=== PATIENT | female | born 1960 | race Caucasian/White ===

== ENCOUNTER 2016-08-11 09:37 | Inpatient (IN) ==
--- NOTE | 2016-08-11 11:33 | Cardiology History & Physical ---
Date of Encounter: 08/11/16 Time of Encounter: 12:00 Assessment and Plan (1) Atrial fibrillation Current Visit: Yes Status: Chronic Presents today for symptomatic atrial fibrillation--per Dr. Joseph Quijano, will start Rythmol therapy. Last saw Dr. Joseph Quijano on 06/20/16 who recommended antiarrhythmic therapy for symptomatic afib--dizziness, fatigue, dyspnea. [facility] 2010: no significant CAD TTE February 2016: LVEF preserved, mild-moderately dilated left atrium, no significant valvular dysfunction. On Toprol XL 12.5 mg daily and Cardizem 120 mg daily, will continue for now, may need dose adjustment--monitor ECG's, telemetry closely. Has been anticoagulated on Xarelto 20 mg daily, reports compliance (no missed doses) with medication >30 days. Obtain baseline ECG, BMP, CBC, and Mag. Baseline ECG 08/11/16: HR 90 Afib QRS: 85 ms QT/QTc: 357/407 ms Will initiate Rythmol 120mg [id number] with daily EKGs for QRS monitoring <120ms. Will need inpatient monitoring for at least 5-6 doses. If remains in Afib by 6th dose, plan for DCCV--patient is agreeable. Discussed and reviewed with Dr. Goss who agrees with plan as stated above. Qualifiers: Atrial fibrillation type: persistent Qualified Code(s): I48.1 - Persistent atrial fibrillation (2) Encounter for monitoring anti-arrhythmic therapy Current Visit: Yes Status: Acute Plan as stated above. The assessment and plan as outlined above was discussed with the patient and/or family members who expressed understanding and agreement. All questions were answered. (3) Essential hypertension Current Visit: Yes Status: Chronic Controlled, adjust as necessary. History of Present Illness Chief complaint: Atrial fibrillation HPI: Ms. Madrid is a 56 year old female with PMH significant for persistent atrial fibrillation (Xarelto), CARMELO (CPAP compliant), HTN, and HLD. She has been having shortness of breath and dizziness related to atrial fibrillation. After discussion with Dr. Joseph Quijano she opted for admission for initiation of antiarrhythmics for rhythm control. She presents today to start Rythmol. Recent CV testing: [facility] 01/2011: Coronary arteries are normal TTE 03/14/16: EF 60-65%, mild to moderately dilated left atrium, no significant valvular dysfunction. 07/04/16: Atrial fibrillation throughout the monitor, average heart rate 83, occasional pauses, longest 2.2 seconds. Pauses occurred during nocturnal hours, rare PVCs or aberrant beats Past Med Surg Social Fam HX - Past Medical History Medical history: atrial fibrillation, DVT, hypertension, other (Obstructive sleep apnea) Psychiatric history: anxiety (Situational anxiety related to iminate of her spouse) - Past Surgical History Surgical History: hysterectomy - Social History Smoking Status: Never smoker Smokeless Tobacco Status: No Alcohol use: none Drug use: none - Family History Mother Living Status: Father Living Status: Hx Family Respiratory Disorders: Yes (COPD) Sister Living Status: Hx Family Cancer: Yes (lung) Brother Living Status: Hx Family Cancer: Yes (colon) Medications and Allergies Atorvastatin [Lipitor] 40 mg PO HS 03/13/16 [History] Metoprolol XL (24 HR) Succ [Toprol Xl] 12.5 mg PO DAILY 03/13/16 [History] Diltiazem CD (24hr) [Cardizem CD] 120 mg PO DAILY #30 cap.er.24h 03/15/16 [Rx] Rivaroxaban [Xarelto] 20 mg PO 2100 08/11/16 [History] Allergies ibuprofen [From Motrin] Allergy (Verified 02/05/15 08:28) Hives sulfamethoxazole [From Bactrim] Allergy (Verified 02/05/15 08:28) Rash trimethoprim [From Bactrim] Allergy (Verified 02/05/15 08:28) Rash All Systems Review: A 10-system review of systems was performed and is negative for pertinent findings except as documented above in the HPI. - Cardiovascular Cardiovascular: as per HPI Physical Examination General: Conversant, No Apparent Distress HEENT: Atraumatic, Normocephaly, Mucus Membranes Moist Cardiac: Other (irregularly irregular) Neuro: Alert and responsive Abdomen: Soft Skin: No rashes noted on visualized skin Musculoskeletal: No Chest Wall Tenderness Extremities: No Edema, Normal Pulses Results 08/11/16 12:01 08/11/16 12:01 - Imaging and Cardiology Echo: report reviewed Cardiac cath: report reviewed - EKG Interpretation EKG results cardiology: personally reviewed
[2016-08-11 12:11] LABS: Basophils % 0.6 %; Eosinophils % 0.6 %; Hematocrit 42.7 % (35.3-44.9); Hemoglobin 14.3 g/dL (11.5-15.4); Immature Granulocytes % 0.3 % (0-4); Lymphocytes % 29.5 %; Mean Corpuscular HGB Conc 33.5 g/dL (31.6-35.5); Mean Corpuscular Hemoglobin 28.4 pg (28.0-33.3); Mean Corpuscular Volume 84.7 fL (83.0-100.0); Mean Platelet Volume 9.5 fL (9.4-12.4); Monocytes # 0.4 K/mcL (0.0-1.3); Monocytes % 5.8 %; Neutrophils # 4.3 K/mcL (1.6-8.9); Platelet Count 229 K/mcL (140-400); Red Blood Count 5.04 M/mcL (3.82-4.97); Segmented Neutrophils % 63.2 %
[2016-08-11 12:24] LABS: BUN/Creatinine Ratio 15 (6-26); Blood Urea Nitrogen 11 mg/dL (7-20); Calcium 9.5 mg/dL (8.6-10.8); Carbon Dioxide 24 mEq/L (19-29); Chloride 109 mEq/L (98-109); Glucose 91 mg/dL (70-99); Magnesium 2.2 mg/dL (1.6-2.6); Osmolality,Calculated 289 (280-300); Potassium 4.1 mEq/L (3.5-4.5); Sodium 140 mEq/L (136-145); eGFR For African Americans > 60 (> 60); eGFR For Non-African Americans > 60 (> 60)
[2016-08-11] MEDS ORDERED: Naloxone 0.4 MG/ML INJ IVP PRN (13:01)
[2016-08-11] MEDS: Diltiazem CD (24hr) 120 MG CAPSULE PO SCH (14:10)
[2016-08-11] MEDS: *HR* Rivaroxaban 10 MG TABLET PO SCH (21:04)
--- NOTE | 2016-08-12 07:03 | Electrocardiograph Report ---
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
[2016-08-12] MEDS: Metoprolol XL (24 HR) Succ 25 MG TAB.ER.24H PO SCH (08:09)
[2016-08-12] MEDS: Diltiazem CD (24hr) 120 MG CAPSULE PO SCH (08:09)
--- NOTE | 2016-08-12 10:54 | Cardiology Progress Note ---
Date of Encounter: 08/12/16 Time of Encounter: 10:40 Assessment and Plan (1) Atrial fibrillation Current Visit: Yes Status: Chronic Presents today for symptomatic atrial fibrillation--per Dr. Joseph Quijano, will start Rythmol therapy. Last saw Dr. Joseph Quijano on 06/20/16 who recommended antiarrhythmic therapy for symptomatic afib--dizziness, fatigue, dyspnea. [facility] 2010: no significant CAD TTE February 2016: LVEF preserved, mild-moderately dilated left atrium, no significant valvular dysfunction. On Toprol XL 12.5 mg daily and Cardizem 120 mg daily, will continue for now, may need dose adjustment--monitor ECG's, telemetry closely. Has been anticoagulated on Xarelto 20 mg daily, reports compliance (no missed doses) with medication >30 days. Baseline ECG 08/11/16: HR 90 Afib QRS: 85 ms QT/QTc: 357/407 ms After 3 doses: 08/12/16: HR 69 Afib QRS: 87 ms QT/QTc: 409/428 ms Will initiate Rythmol 120mg [id number] with daily EKGs for QRS monitoring <120ms. Will need inpatient monitoring for at least 5-6 doses. 5th dose schedule for tonight at 2200, will plan for DCCV in AM if remains Afib. NPO after MN. Qualifiers: Atrial fibrillation type: persistent Qualified Code(s): I48.1 - Persistent atrial fibrillation (2) Encounter for monitoring anti-arrhythmic therapy Current Visit: Yes Status: Acute Plan as stated above. The assessment and plan as outlined above was discussed with the patient and/or family members who expressed understanding and agreement. All questions were answered. (3) Essential hypertension Current Visit: Yes Status: Chronic Controlled, adjust as necessary. Discussion w patient/family: The assessment and plan as outlined above was discussed with the patient and/or family members who expressed understanding and agreement. All questions were answered. Thank you for involving us in the care of your patient. Please call with any questions. The patient will be discussed and reviewed with Dr. Goss; changes to be made accordingly. Subjective Principal diagnosis: Atrial fibrillation Interval history: Seen and examined. No complaints other than mild headache this morning. Objective Vital Signs, Last 4 Hours Temp Pulse Resp BP Pulse Ox 08/12/16 08:10 76 08/12/16 07:22 98.2 F 97 16 140/92 97 General: Conversant, No Apparent Distress HEENT: Atraumatic, Normocephaly Cardiac: Other (irregularly irregular) Lungs: Normal Breath Sounds Neuro: Alert and responsive Abdomen: Soft Skin: No rashes noted on visualized skin Musculoskeletal: No Chest Wall Tenderness Extremities: No Edema, Normal Pulses Results 08/11/16 12:01 08/11/16 12:01 Lab Results 08/11/16 08/11/16 12:01 12:01 WBC 6.9 Hgb 14.3 Hct 42.7 Plt Count 229 Sodium 140 Potassium 4.1 Chloride 109 Carbon Dioxide 24 BUN 11 Creatinine 0.72 Glucose 91 Calcium 9.5 Magnesium 2.2 - Imaging and Cardiology Echo: report reviewed Cardiac cath: report reviewed Other Results: 12 hour tele: avg HR=73 afib. - EKG Interpretation EKG results cardiology: personally reviewed - VTE Reasons for not Prescribing Prophylaxis: Not indicated-Anticoagulated or INR therapeutic Consult Discharge Plan - Plan Referrals: Teja White MD [Primary Care Provider] - 08/18/16 3:00 pm
--- NOTE | 2016-08-12 16:47 | Electrocardiograph Report ---
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
[2016-08-12] MEDS: *HR* Rivaroxaban 10 MG TABLET PO SCH (22:00)
[2016-08-13] MEDS: Diltiazem CD (24hr) 120 MG CAPSULE PO SCH (08:40)
[2016-08-13] MEDS: Metoprolol XL (24 HR) Succ 25 MG TAB.ER.24H PO SCH (08:40)
[2016-08-13] MEDS ORDERED: 0.9 % Sodium Chloride 500 ML IVC ONE (10:12)
[2016-08-13] MEDS: *HR* FentaNYL (PF) 100 MCG/2 ML VIAL IVP PRN ×2 (10:45→10:49)
[2016-08-13] MEDS: *HR* Midazolam HCl 5 MG/5 ML VIAL IVP PRN ×2 (10:45→10:49)
[2016-08-13 11:56] VITALS: BP 121/80
--- NOTE | 2016-08-13 12:19 | ECHO - Doppler Report ---
Cardioversion Name: Beba Madrid Date of Study: 08/13/2016 Date: 1960 Ht: 65.0in Medical Record#: [id number] Age: 56 Wt: 213.0lb Gender: Female BSA: 2.03 Order #: [id number] Location: [facility] Room #: 2N08 Reading Physician: Maciej Lord DO, FACC Patternmaker Sample: Ordering Physician: Dang Nguyen CNP Primary Physician: Teja White MD Indications: Arrhythmia Impressions: Successful synchronized cardioversion with 300 Joules. See details below. Medication Given: Time Medication Dose Units Route 10:45 Versed 2 mg IV 10:45 Fentanyl 25 mcg IV 10:49 Versed 2 mg IV 10:49 Fentanyl 25 mcg IV Findings: Cardioversion * First attempt: 200 Joules, unsuccessful. * Second attempt: 300 Joules, successful. * No neurological deficits after the procedure. Procedure Details: Following informed consent, the patient was sedated with versed and fentanyl. After adequate sedation was achieved, synchronized cardioversion in the AP approach was performed. Initially, 200 Joules was unsuccessful. Second attempt with 300 Joules was successful at restoring normal sinus rhythm. The patient was monitored for the standard 30 minutes post procedure. Complications: None History: Hypertension Hypercholesteremia Previous Echo03/14/2016 BP 126 / 84 Updated by Maciej Lord DO, FACC, FASE, FASNC on 08/13/2016 12:13:41 PM
--- NOTE | 2016-08-13 12:29 | Electrocardiograph Report ---
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
--- NOTE | 2016-08-13 12:46 | Discharge Summary ---
Date of Encounter: 08/13/16 Time of Encounter: 12:30 - Discharge Diagnosis (1) Atrial fibrillation Priority: Primary Status: Chronic Comments: s/p successful DCCV Qualifiers: Atrial fibrillation type: persistent Qualified Code(s): I48.1 - Persistent atrial fibrillation (2) Encounter for monitoring anti-arrhythmic therapy Priority: Primary Status: Acute (3) Essential hypertension Priority: Secondary Status: Chronic - Discharge Medications Prescriptions: Propafenone [Rhythmol] 150 mg PO 0600,1400,2200 #90 tablet Home Medications: Atorvastatin [Lipitor] 40 mg PO HS 03/13/16 [History] Metoprolol XL (24 HR) Succ [Toprol Xl] 12.5 mg PO DAILY 03/13/16 [History] Diltiazem CD (24hr) [Cardizem CD] 120 mg PO DAILY #30 cap.er.24h 03/15/16 [Rx] Rivaroxaban [Xarelto] 20 mg PO 2100 08/11/16 [History] Propafenone [Rhythmol] 150 mg PO 0600,1400,2200 #90 tablet 08/13/16 [Rx] Allergies/Adverse Reactions: Allergies ibuprofen [From Motrin] Allergy (Verified 02/05/15 08:28) Hives sulfamethoxazole [From Bactrim] Allergy (Verified 02/05/15 08:28) Rash trimethoprim [From Bactrim] Allergy (Verified 02/05/15 08:28) Rash Procedures/tests Complete & Pending: Procedures Performed prior 72 hours Category Date Time Status ECG 12 lead ECG [ECG] AM 0600 Y 08/12/16 06:00 Completed ECG 12 lead ECG [ECG] AM 0600 Y 08/13/16 06:00 Completed ECG 12 lead ECG [ECG] AM 0600 Y 08/14/16 06:00 Ordered ECG 12 lead ECG [ECG] Stat Y 08/11/16 11:31 Completed EV cardioversion Routine Y 08/13/16 07:44 Completed Date of admission: 08/11/16 13:02 Primary care physician: Teja White MD Consults: 08/11/16 12:23 Consult to Invasive Line Access Team [CONS] Routine Reason for Consult: LIMITED ACCESS Line Type: EPIV Discharging clinician: Dang Nguyen Anticipated date of discharge: 08/13/16 - Patient Status Disposition: Home, Self-Care Condition: Good Functional capacity at discharge: independent ambulation Overall status at discharge: patient is back to baseline - Discharge Instructions Follow Up With: Teja White MD [Primary Care Provider] - 08/18/16 3:00 pm Joseph Quijano MD [Partnered Physician] - 08/29/16 10:45 am - Diet and Activity Activity: increase activity as tolerated, resume usual activities as tolerated Diet: low fat, low cholesterol, low salt diet - Hospital Course Hospital course: Ms. Madrid is a 56 year old female who presented for antiarrhythmic initiation for today for symptomatic atrial fibrillation. ECG (QRS, QT/QTc) remained stable throughout 6 doses; she remained in atrial fibrillation and underwent successful DCCV today (after 2 attempts) to [facility]. Upon exam, she is sitting upright eating breakfast. SR noted per monitor, HR 60's-70's. Labs, vitals, and telemetry remained stable throughout hospitalization. ECG this AM after 6 doses (prior to DCCV): HR 64 (afib) QRS 96 QT/QTc 401/411 Ms. Julius is being prepped for discharge to home in stable condition. Emphasized importance of continuation of Xarelto uniterrupted for the next 30 days. No medications were changed except addition of Rythmol every 8 hours, education provided on new mediation. All questions and concerns were addressed, she will follow-up with Dr. Joseph Quijano in 2 weeks as scheduled. - Time Spent with Patient Total time spent providing and/or coordinating discharge services: Less than 30 minutes Physical Examination Vital Signs, Last 4 Hours Temp Pulse Resp BP Pulse Ox 08/13/16 11:55 64 08/13/16 11:54 97.5 F L 57 16 121/80 96 08/13/16 10:18 97.6 F 89 12 126/84 98 General: Conversant, No Apparent Distress HEENT: Atraumatic, Normocephaly, Mucus Membranes Moist Cardiac: Reg Rate and Rhythm, Normal S1 and S2 Lungs: Normal Breath Sounds, No Wheeze, Rales, Rhonchi Neuro: Alert and responsive, No focal deficits noted Abdomen: Soft Skin: No rashes noted on visualized skin Musculoskeletal: No Chest Wall Tenderness Extremities: No Edema, Normal Pulses - VTE Reasons for not Prescribing Prophylaxis: Not indicated-Anticoagulated or INR therapeutic
--- NOTE | 2016-08-14 11:34 | Electrocardiograph Report ---
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
--- NOTE | 2016-08-14 11:37 | Electrocardiograph Report ---
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
== END 2016-08-13 13:15 | disposition home or self-care (01) | DRG 310 ==
LOC: 2NNU
PROVIDERS: ADMIT Emergency Medicine; ATTEND Emergency Medicine